=== PATIENT | male | born 1970 | race African-American/Black ===

== ENCOUNTER 2016-11-29 04:21 | Emergency (ER) | payer BC ==
[~2016-11-29] VITALS: Ht 177.8 cm; Wt 82.0 kg
[~2016-11-29 04:21] MED LIST: ANTIVERT25 MG PO; ASPIRIN EC325 MG PO; ASPIRIN325 MG PO; DAILY VALUE1 EACH PO; FLEXERIL10 MG PO; HYDROCHLOROTH12.5 M3 PO; IBUPROFEN800 MG PO; LISINOPRIL10 MG PO; LISINOPRIL5 MG PO; MOTRIN600 MG PO; NAPROSYN500 MG PO; NAPROXEN500 MG PO; PRAVASTATIN SOD80 MG PO; PREVPAC PATIEN1 EACH; TYLENOL # 3 PO
[2016-11-29 05:34] LABS: CHLORIDE 106 mEq/L (99-109); POTASSIUM 3.6 mEq/L (3.7-5.4); SODIUM 142 mEq/L (136-147)
[2016-11-29 05:35] LABS: GLUCOSE 97 mg/dL (70-99)
[2016-11-29 05:37] LABS: ANION GAP 10 MEQ/L (2-14)
[2016-11-29 05:39] LABS: GFR ESTIMATE (CALCULATED) > 59 mL/min/
[2016-11-29 05:40] LABS: UREA NITROGEN (BUN) 8 mg/dL (9-23)
[2016-11-29 05:48] LABS: HEMATOCRIT 41.4 % (38.0-50.0); MCHC 32.9 G/DL (30.0-36.0); MCV 94.3 FL (86-99); MEAN PLAT.VOLUME 10.6 uM^3 (9.0-12.4); PLATELET COUNT 283 K/uL (156-360); RBC DIS.WIDTH-CV 12.4 % (11.8-14.6); RBC DIS.WIDTH-SD 42.8 % (39-53); RED BLOOD COUNT 4.39 M/uL (4.00-5.50); WHITE BLOOD COUNT 8.6 K/uL (4.1-10.2)
[2016-11-29 06:18] LABS: ADD MIUA? NO; BILIRUBIN NEGATIVE; BLOOD NEGATIVE; COLOR YELLOW ((YELLOW)); GLUCOSE (STRIP) NEGATIVE; KETONES NEGATIVE; LEUKOCYTES NEGATIVE; NITRITE NEGATIVE; PROTEIN (STRIP) NEGATIVE; SPECIFIC GRAVITY 1.014 (1.000-1.030); UCUL ADDED? NO; UROBILINOGEN 0.2 MG/DL (0.2-1.0)
[2016-11-29] MEDS ORDERED: VALIUM5 MG PO (06:49)
[2016-11-29 07:08] VITALS: BP 167/100
== END 2016-11-29 07:09 | disposition home or self-care (01) ==
LOC: EME 04:21
PROVIDERS: Physician Assistant
DX: M54.5 Low back pain (principal); G89.29 Other chronic pain
CPT/HCPCS: 74176; 80048; 81003; 85027; 99281; 99284; J1885